=== PATIENT | female | born 1970 | race Caucasian/White ===

== ENCOUNTER 2024-11-08 08:17 | Day surgery (SDC) | payer BC ==
[2024-11-07 15:05] LABS: Absolute Basophils 0.1 K/uL (0-0.5); Absolute Eosinophils 0.4 K/uL (0-0.5); Absolute Lymphocytes (CBC) 4.1 K/uL (0.7-4.9); Absolute Monocytes 0.5 K/uL (0.1-1.3); Absolute Neutrophil 3.5 K/uL (1.8-8.0); Basophils % 1.2 % (0-1.3); Eosinophils % 4.1 % (0-4.4); Hematocrit 41.3 % (36.0-45.0); Hemoglobin 14.1 g/dL (12.0-15.0); Lymphocytes % 47.9 % (15.3-44.8); MCH 29.4 pg (27.0-35.0); MCHC 34.2 g/dL (32.0-36.0); MPV 8.6 fL (7.6-11.3); Monocytes % 5.7 % (3.3-12.3); Neutrophils % 41.1 % (41.7-73.7); Nucleated Red Blood Cells % 0.1 % (0-0); Platelets 95 thou/uL (152-406); Red Cell Distribution Width 13.4 % (12.1-15.2)
[2024-11-07 15:29] LABS: Anion Gap 11.9 mEq/L (5.0-15.0)
[2024-11-07 15:30] LABS: Potassium 3.9 mEq/L (3.5-5.1)
[2024-11-07 17:34] LABS: Blood Morphology Comment NOT SEEN (NOT SEEN); Platelet Estimate ADEQ; White Blood Cell Scan OK (OK)
[2024-11-08] MEDS ORDERED: Ringers Lactate 1,000 ML IV ONE (08:45)
[2024-11-08] MEDS ORDERED: propofoL 200 MG/20 ML VIAL IV ONE ×2 (10:54)
[2024-11-08] MEDS ORDERED: LIDOCAINE 1% MPF 5 ML VIAL ONE (10:55)
[2024-11-08] MEDS ORDERED: ONDANSETRON 4 MG/2 ML VIAL ONE (11:46)
[2024-11-08 12:58] VITALS: BP 132/72; TEMP 97.2; O2SAT 98
== END 2024-11-08 12:53 | disposition home or self-care (01) ==
LOC: OR 08:17
PROVIDERS: ATTEND Surgery
PROC: 0DJD8ZZ Inspection of Lower Intestinal Tract, Via Natural or Artificial Opening Endoscopic (ICD-10-PCS; principal; 2024-11-08 11:00)
DX: Z12.11 Encounter for screening for malignant neoplasm of colon (principal); K57.30 Diverticulosis of large intestine without perforation or abscess without bleeding; K64.8 Other hemorrhoids; K64.4 Residual hemorrhoidal skin tags
CPT/HCPCS: 93005; 85025; 80048; 36415; 45378; J2704 ×2; J2003; J2405; J7120

== ENCOUNTER 2024-12-13 10:55 | Day surgery (SDC) | payer BC ==
[2024-12-12 14:28] LABS: Hematocrit 39.1 % (36.0-45.0); Hemoglobin 13.6 g/dL (12.0-15.0); Lymphocytes % 35.5 % (15.3-44.8); MCH 29.9 pg (27.0-35.0); MCHC 34.7 g/dL (32.0-36.0); MCV 86.3 fL (80-100); MPV 9.5 fL (7.6-11.3); Monocytes % 5.8 % (3.3-12.3); Neutrophils % 54.4 % (41.7-73.7); Platelets 196 thou/uL (152-406); RBC Red Blood Cell Count 4.53 M/uL (3.86-4.86); Red Cell Distribution Width 14.2 % (12.1-15.2)
[2024-12-12 14:29] LABS: Absolute Eosinophils 0.2 K/uL (0-0.5); Absolute Lymphocytes (CBC) 2.2 K/uL (0.7-4.9); Absolute Monocytes 0.4 K/uL (0.1-1.3); Absolute Neutrophil 3.4 K/uL (1.8-8.0); Basophils % 0.8 % (0-1.3); Eosinophils % 3.5 % (0-4.4)
[2024-12-13] MEDS ORDERED: propofoL 200 MG/20 ML VIAL IV ONE (13:19)
[2024-12-13 15:19] VITALS: O2SAT 96
[2024-12-13 15:20] VITALS: BP 116/77; TEMP 97.1
== END 2024-12-13 15:20 | disposition home or self-care (01) ==
LOC: OR 10:55
PROVIDERS: ATTEND Surgery
PROC: 0DB68ZX Excision of Stomach, Via Natural or Artificial Opening Endoscopic, Diagnostic (ICD-10-PCS; 2024-12-13)
PROC: 0DB48ZX Excision of Esophagogastric Junction, Via Natural or Artificial Opening Endoscopic, Diagnostic (ICD-10-PCS; 2024-12-13)
PROC: 0DB98ZX Excision of Duodenum, Via Natural or Artificial Opening Endoscopic, Diagnostic (ICD-10-PCS; principal; 2024-12-13 13:30)
DX: R10.13 Epigastric pain (principal); K21.9 Gastro-esophageal reflux disease without esophagitis; K44.9 Diaphragmatic hernia without obstruction or gangrene; K29.60 Other gastritis without bleeding; K29.50 Unspecified chronic gastritis without bleeding; K21.00 Gastro-esophageal reflux disease with esophagitis, without bleeding
CPT/HCPCS: 85025; 88312 ×2; 88305; 43239; J2704